=== PATIENT | female | born 1985 | race Caucasian/White ===

== ENCOUNTER 2021-11-18 13:06 | Emergency (ER) | payer MEDICAID, OTHER ==
[~2021-11-18] VITALS: Ht 160 cm; Wt 90.7 kg
[2021-11-18] MEDS ORDERED: CYCLOBENZAPRINE HCL 10 MG TABLET PO ONE (15:00)
[2021-11-18] MEDS ORDERED: PREDNISONE 20 MG TABLET PO ONE (15:00)
[2021-11-18] MEDS ORDERED: KETOROLAC 30MG VIAL (30MG/ML) IM ONE (15:00)
[2021-11-18] MEDS ORDERED: NAPR500T6 PO (15:03)
[2021-11-18] MEDS ORDERED: CYCL10TA16 PO (15:03)
[2021-11-18] MEDS ORDERED: PRED20TA3 PO (15:03)
[2021-11-18 15:08] LABS: APPEARANCE,URINE CLOUDY (CLEAR); BILIRUBIN,URINE SMALL mg/dL (NEGATIVE); COLOR,URINE DARK YELLOW (YELLOW); GLUCOSE, URINE (UA) NEGATIVE (NEGATIVE); KETONES,URINE 5 mg/dL (NEGATIVE); LEUKOCYTE ESTERASE ,URINE NEGATIVE Leu/uL (NEGATIVE); NITRATE,URINE POSITIVE (NEGATIVE); OCCULT BLOOD,URINE LARGE (NEGATIVE); PH,URINE 5.5 (5.0-8.0); PROTEIN,URINE 30 mg/dL (NEGATIVE)
[2021-11-18 15:13] LABS: HCG,QUALITATIVE URINE NEGATIVE (NEGATIVE)
[2021-11-18 15:23] LABS: BACTERIA,URINE Few /HPF (None Seen); MUCUS,URINE Few LPF (None Seen); RBC,URINE >100 /HPF (0-1); SQUAMOUS EPITHELIAL CELL,UR Few /HPF (0-2)
[2021-11-18 15:33] VITALS: BP 115/73
== END 2021-11-18 15:35 | disposition home or self-care (01) ==
LOC: EDH 13:06
DX: M54.42 Lumbago with sciatica, left side (principal); Z79.1 Long term (current) use of non-steroidal anti-inflammatories (NSAID); Z79.52 Long term (current) use of systemic steroids
CPT/HCPCS: 99283; 87088; 81001; 81025; 96372; J1885